=== PATIENT | female | born 1990 | race Caucasian/White ===

== ENCOUNTER 2018-02-07 04:37 | Emergency (ER) | payer OTHER ==
[~2018-02-07] VITALS: Ht 165.1 cm; Wt 72.6 kg
[~2018-02-07 04:37] MED LIST: NAPROSYN500 M1 PO; NORCO 5-325 TA1 EACH PO; PROVERA10 MG PO
[2018-02-07] MEDS ORDERED: BENTYL 20 MG TA20 M1 (05:16)
[2018-02-07] MEDS ORDERED: ZOFRAN ODT4 MG (05:17)
[2018-02-07 05:23] LABS: URINE BILIRUBIN NEGATIVE (Negative); URINE BLOOD NEGATIVE (Negative); URINE CLARITY CLEAR; URINE COLOR YELLOW; URINE GLUCOSE-RANDOM* NEGATIVE (Negative); URINE KETONES NEGATIVE (Negative); URINE LEUKOCYTES-REFLEX NEGATIVE (Negative); URINE NITRITE-REFLEX NEGATIVE (Negative); URINE PROTEIN (DIPSTICK) NEGATIVE (Negative); URINE SPECIFIC GRAVITY 1.025 (1.005-1.035); URINE UROBILINOGEN 0.2 E.U./dl (0.2-1.0)
[2018-02-07 05:26] LABS: ABSOLUTE NEUTROPHILS 8.4 thou/uL (1.4-8.2); BASOPHILS 0.2 % (0.0-2.0); EOSINOPHILS 0.6 % (0.0-3.0); HEMATOCRIT 40.1 % (37.0-47.0); HEMOGLOBIN 13.8 gm/dL (12.0-15.0); LYMPHOCYTES 7.3 % (24.0-44.0); MCH 29.2 pg (26.0-34.0); MCHC 34.3 g/dL (28.0-37.0); MCV 85.1 fL (80.0-100.0); MONOCYTES 8.8 % (1.0-8.0); PLATELET COUNT 242 thou/uL (150-400); POLYS 83.1 % (36.0-66.0); RBC 4.71 mil/uL (4.20-5.00); RDW 13.3 % (10.5-14.5); WBC 10.1 thou/uL (4.0-11.0)
[2018-02-07 05:29] LABS: CALCIUM 8.8 mg/dL (8.5-10.1); CREATININE 0.8 mg/dL (0.6-1.0); POTASSIUM 3.6 mmol/L (3.5-5.1)
[2018-02-07 05:35] LABS: ALBUMIN 4.4 g/dL (3.4-5.0); DIRECT BILIRUBIN 0.2 mg/dL (<0.1-0.3); TOTAL BILIRUBIN 1.1 mg/dL (<0.1-1.0); TOTAL PROTEIN 7.9 g/dL (6.4-8.2)
[2018-02-07 06:35] VITALS: BP 94/53
== END 2018-02-07 06:35 | disposition home or self-care (01) ==
LOC: ER 04:37
PROVIDERS: Emergency Medicine
DX: R10.31 Right lower quadrant pain (principal)